=== PATIENT | male | born 1945 | race Caucasian/White ===

== ENCOUNTER 2021-03-02 19:36 | Emergency (ER) | payer MEDICARE, OTHER ==
[2021-03-02] MEDS: Sodium Chloride 0.9% 10 ML Syringe FLUSH PRN ×2 (20:10→20:57)
[2021-03-02] MEDS ORDERED: Magnesium Sulfate/Water 2 GM in Premix Bag 1 BAG IV ONE (20:16)
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
[2021-03-02] MEDS ORDERED: Amiodarone In Dextrose,Iso-Osm 200 ML IV SCH (20:30)
[2021-03-02] MEDS ORDERED: Iopamidol 755 Mg/ML 100 ML Bottle IVPUSH ONE (20:41)
[2021-03-02] MEDS ORDERED: Sodium Chloride 0.9% 10 ML SDV FLUSH ONE (20:41)
[2021-03-02] MEDS ORDERED: Sodium Chloride 0.9% 100 ML IV SCH (20:45)
--- NOTE | 2021-03-03 08:36 | CT ---
CT chest Technique: Multiple axial sections through the chest were obtained. Intravenous contrast was utilized. Study has been performed as a pulmonary angiogram protocol. Comparison: No prior chest imaging is available. Findings: Pulmonary arteries are fairly well opacified. No filling defects are seen to indicate pulmonary embolism. Thoracic aorta shows atherosclerotic calcification with no aneurysm. Mediastinum shows no adenopathy. No axillary adenopathy is seen. Soft tissue finding is seen posterior to the superior vena cava most likely representing a small vascular anomaly measuring 3.4 cm. No pericardial thickening is seen. Heart may be minimally enlarged. Increased density is seen within the gallbladder presumably representing gallstones. Parapelvic cyst is partially seen within the right kidney. Minimal hiatal hernia is noted. Lung window settings were reviewed which show mild interstitial change which is most likely due to mild fibrosis. No acute parenchymal change is definitely appreciated. Bone window settings were reviewed. Scattered degenerative change is seen within the spine. No acute osseous finding is appreciated. Impression: 1. No findings of pulmonary embolism. 2. Other findings as described above are believed to be nonacute. Diagnostic code #2 I agree with preliminary report from [facility], finalized on 03/02/21, 10:26 PM CDT, Code 1
== END 2021-03-02 22:15 ==
LOC: JD.ED 19:36
DX: I47.2 Ventricular tachycardia (principal); R55 Syncope and collapse; I44.7 Left bundle-branch block, unspecified; I10 Essential (primary) hypertension; I25.2 Old myocardial infarction; Z79.82 Long term (current) use of aspirin; Z79.899 Other long term (current) drug therapy; Z20.822 Contact with and (suspected) exposure to COVID-19
CPT/HCPCS: 36415; 71275; 80053; 83735; 84484; 85025; 85379; 93005; 96365; 96366; 96368; 99285; J0282; J3475; Q9967; U0002; 93010

== ENCOUNTER 2021-03-14 10:50 | Emergency (ER) | payer MEDICARE, OTHER ==
[2021-03-14] MEDS ORDERED: Sodium Chloride 0.9% 1,000 ML IV SCH (11:30)
--- NOTE | 2021-03-14 11:33 | EDM.PDOC ---
ED HPI GENERAL MEDICAL PROBLEM - General Chief Complaint: Cardiovascular Problem Stated Complaint: HEART RATE IS DROPPING Time Seen by Provider: 03/14/21 11:16 Source of Information: Reports: Patient, Family (Spouse) History Limitations: Reports: No Limitations - History of Present Illness INITIAL COMMENTS - FREE TEXT/NARRATIVE: 75-year-old male presents to the ED due to bradycardia. Patient had 2 stents placed in the left anterior descending coronary artery by Dr. White rn faculty at [facility] in [place] on March 02. Patient had a short run of V. tach while in hospital here ,March 01 which resolved on its own. Patient was to go to cardiac rehab first day today but as soon as they identified the bradycardia they sent him to the ED. Patient was mildly lig htheaded and dizzy with heart rates in the 30s. He reduced his amiodarone today from 400 mg daily to 200 mg daily which is the first day of treatment. He is also on metoprolol succinate 50 mg daily. He denies any chest pain or dyspnea. He overall feels well. Of note the patient has any cardiac defibrillator vest which I have not seen before with pads bilateral lower back inferior to the scapula and a pad inferior to the left breast in a belt-like fashion. Apparently this was an option versus having a defibrillator pacemaker inserted. Patient denies any productive cough or sputum production. Onset: Today (Heart rate in the 30s first noted today. Blood pressure is actually been going up a bit over the last week.) Onset Date: 03/14/21 (Bradycardia first noted today.) Duration: Hour(s):, Waxing/Waning (Heart rate is staying primarily low bradycardia 52 to 54/min.) Location: Reports: Other (Low heart rate i.e. bradycardia as low as 30/min.) Quality: Reports: Other ([Low heart rate I bradycardia in the 30s.) Improves with: Reports: Other (Proved spontaneously particularly at rest) Worsens with: Reports: Other (Is worse with exertion and standing) Associated Symptoms: Reports: Malaise, Shortness of Breath, Weakness (Mild since the DC.). Denies: Confusion, Chest Pain, Cough, cough w sputum, Diaphoresis, Fever/Chills, Headaches, Loss of Appetite, Nausea/Vomiting, Rash, Seizure, Syncope (Mild) Treatments MERCHANDISER: Reports: Other (see below) (None.) - Related Data Allergies Allergy/AdvReac Type Severity Reaction Status Date / Time No Known Allergies Allergy Verified 03/14/21 11:04 Home Meds: Home Meds Aspirin 325 mg PO DAILY 03/02/21 [History] Lisinopril/Hydrochlorothiazide [Lisinopril-HCTZ 10-12.5 MG] 2 tab PO DAILY 03/02/21 [History] Loratadine [Claritin] 10 mg PO DAILY PRN 03/02/21 [History] Metoprolol Succinate 50 mg PO BID 03/02/21 [History] Omeprazole 40 mg PO DAILY 03/02/21 [History] Simvastatin [Zocor] 40 mg PO DAILY 03/02/21 [History] flaxseed oiL [Flaxseed Oil] 2,400 mg PO BID 03/02/21 [History] Metoprolol Succinate 25 mg PO DAILY #30 tab.er.24h 03/14/21 [Rx] Past Medical History HEENT History: Reports: Hard of Hearing, Impaired Vision Cardiovascular History: Reports: Arrhythmia (History of recurrent bouts of V. tach.), CAD, Hypertension, DC, Stents (2 stents were placed March 02, 2021 in the left anterior descending artery. 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 No stent was placed at that time), Other (See Below) Other Cardiovascular History: Vtach Gastrointestinal History: Reports: Chronic Constipation, GERD (Patient problems with constipation.) Genitourinary History: Reports: BPH - Past Surgical History GI Surgical History: Reports: Appendectomy, Hernia, Inguinal Social & Family History - Living Situation & Occupation Living situation: Reports: , with Spouse Occupation: Retired ED ROS GENERAL - Review of Systems Review Of Systems: See Below Constitutional: Reports: Malaise, Fatigue, Decreased Appetite. Denies: Fever, Chills, Weight Loss HEENT: Reports: Glasses (And a decreased appetite.) Respiratory: Reports: Shortness of Breath, Cough. Denies: Wheezing, Pleuritic Chest Pain, Sputum, Hemoptysis (Productive cough intermittently.) Cardiovascular: Reports: Blood Pressure Problem (Pressures been gradually), Lightheadedness (Today with low heart rate). Denies: Chest Pain, Claudication ( going up the last week or so.), Dyspnea on Exertion, Edema, Orthopnea, Palpitations Endocrine: Reports: Fatigue GI/Abdominal: Reports: Decreased Appetite : Reports: Frequency, Other (Nocturia usually x1 or 2.) Musculoskeletal: Reports: Joint Pain (Right his knees hips low back neck at times) Skin: Reports: Bruising (Is is easily.) Neurological: Reports: No Symptoms. Denies: Confusion, Dizziness, Headache, Numbness, Syncope, Tingling, Difficulty Walking, Weakness Psychiatric: Reports: No Symptoms Hematologic/Lymphatic: Reports: No Symptoms Immunologic: Reports: No Symptoms ED EXAM, GENERAL - Physical Exam Exam: See Below Exam Limited By: No Limitations General Appearance: Alert, WD/WN, Anxious, Mild Distress, Other (Temperature is 36.9 degrees. Heart rate is 54 and sinus bradycardia respiratory to 16 with O2 sats of 90% room air. BP 144/85.) Eye Exam: Bilateral Eye: Normal Inspection (No blepharal pallor or scleral icterus.), PERRL Throat/Mouth: Normal Inspection, Normal Lips, Normal Oropharynx Head: Atraumatic, Normocephalic Neck: Normal Inspection, Supple, Non-Tender, Full Range of Motion. No: Carotid Bruit, Lymphadenopathy (L), Lymphadenopathy (R) Respiratory/Chest: No Respiratory Distress, Lungs Clear, Normal Breath Sounds, No Accessory Muscle Use Cardiovascular: No Edema, No Gallop, No Murmur, No Rub, Bradycardia (Rate was 48/min when I was in the room.). No: Normal Peripheral Pulses, Regular Rate, Rhythm Peripheral Pulses: 2+: Carotid (L), Carotid (R), Posterior Tibial (L), Posterior Tibial (R), Dorsalis Pedis (L), Dorsalis Pedis (R) GI/Abdominal: Normal Bowel Sounds, Soft, Non-Tender, No Organomegaly, No Mass, Pelvis Stable Back Exam: Normal Inspection, Full Range of Motion. No: CVA Tenderness (L), CVA Tenderness (R) Extremities: Normal Inspection, Normal Range of Motion, Non-Tender, No Pedal Edema Neurological: Alert, Oriented, CN II-XII Intact, Normal Cognition Psychiatric: Normal Affect, Anxious Skin Exam: Warm, Dry, Intact (Mildly anxious), Normal Color, No Rash #1 Interpretation EKG Date: 03/14/21 Time: 10:57 Rhythm: Other (Sinus bradycardia) Rate (Beats/Min): 53 [place]: LAD-Left [place] Deviation (-30 degrees) P-Wave: Present (With first-degree AV block) QRS: LBBB QT: Prolonged (Left bundle branch block pattern moderately prolonged) EKG Interpretation Comments: Abnormal ECG Course - Vital Signs Last Recorded V/S: Last Vital Signs Temp 36.9 C 03/14/21 10:58 Pulse 56 L 03/14/21 10:58 Resp 16 03/14/21 10:58 BP 144/85 H 03/14/21 10:58 Pulse Ox 98 03/14/21 10:58 - Orders/Labs/Meds Labs: Laboratory Tests 03/14/21 03/14/21 03/14/21 Range/Units 11:00 11:00 11:00 WBC 8.48 (4.23-9.07) K/mm3 RBC 5.07 (4.63-6.08) M/mm3 Hgb 16.1 (13.7-17.5) gm/dl Hct 49.6 (40.1-51.0) % MCV 97.8 H (79.0-92.2) fl MCH 31.8 (25.7-32.2) pg MCHC 32.5 (32.2-35.5) g/dl RDW Std Deviation 45.7 H (35.1-43.9) fL Plt Count 326 D (163-337) K/mm3 MPV 10.1 (9.4-12.3) fl Neut % (Auto) 60.1 (34.0-67.9) % Lymph % (Auto) 24.2 (21.8-53.1) % Wirt % (Auto) 12.9 H (5.3-12.2) % Eos % (Auto) 1.2 (0.8-7.0) Baso % (Auto) 0.5 (0.1-1.2) % Neut # (Auto) 5.11 (1.78-5.38) K/mm3 Lymph # (Auto) 2.05 (1.32-3.57) K/mm3 Wirt # (Auto) 1.09 H (0.30-0.82) K/mm3 Eos # (Auto) 0.10 (0.04-0.54) K/mm3 Baso # (Auto) 0.04 (0.01-0.08) K/mm3 PT 11.9 (9.7-12.0) SECONDS INR 1.11 APTT (21.7-31.4) SECONDS Sodium 141 (136-145) mEq/L Potassium 4.2 (3.5-5.1) mEq/L Chloride 104 (98-107) mEq/L Carbon Dioxide 29 (21-32) mEq/L Anion Gap 12.2 (5-15) BUN 27 H (7-18) mg/dL Creatinine 1.2 (0.7-1.3) mg/dL Est Cr Clr Drug Dosing 66.31 mL/min Estimated GFR (MDRD) 59 (>60) mL/min BUN/Creatinine Ratio 22.5 H (14-18) Glucose 71 (70-99) mg/dL Calcium 8.7 (8.5-10.1) mg/dL Magnesium 2.2 (1.8-2.4) mg/dL Total Bilirubin 1.2 H (0.2-1.0) mg/dL AST 9 L (15-37) U/L ALT 28 (16-63) U/L Alkaline Phosphatase 61 (46-116) U/L CK-MB (CK-2) 1.2 (0-3.6) ng/ml Troponin I < 0.017 (0.00-0.056) ng/mL C-Reactive Protein <0.2 (<1.0) mg/dL NT-Pro-B Natriuret Pep (0-125) pg/mL Total Protein 7.5 (6.4-8.2) g/dl Albumin 3.7 (3.4-5.0) g/dl Globulin 3.8 gm/dL Albumin/Globulin Ratio 1.0 (1-2) 03/14/21 03/14/21 Range/Units 11:00 11:00 WBC (4.23-9.07) K/mm3 RBC (4.63-6.08) M/mm3 Hgb (13.7-17.5) gm/dl Hct (40.1-51.0) % MCV (79.0-92.2) fl MCH (25.7-32.2) pg MCHC (32.2-35.5) g/dl RDW Std Deviation (35.1-43.9) fL Plt Count (163-337) K/mm3 MPV (9.4-12.3) fl Neut % (Auto) (34.0-67.9) % Lymph % (Auto) (21.8-53.1) % Wirt % (Auto) (5.3-12.2) % Eos % (Auto) (0.8-7.0) Baso % (Auto) (0.1-1.2) % Neut # (Auto) (1.78-5.38) K/mm3 Lymph # (Auto) (1.32-3.57) K/mm3 Wirt # (Auto) (0.30-0.82) K/mm3 Eos # (Auto) (0.04-0.54) K/mm3 Baso # (Auto) (0.01-0.08) K/mm3 PT (9.7-12.0) SECONDS INR APTT 26.7 (21.7-31.4) SECONDS Sodium (136-145) mEq/L Potassium (3.5-5.1) mEq/L Chloride (98-107) mEq/L Carbon Dioxide (21-32) mEq/L Anion Gap (5-15) BUN (7-18) mg/dL Creatinine (0.7-1.3) mg/dL Est Cr Clr Drug Dosing mL/min Estimated GFR (MDRD) (>60) mL/min BUN/Creatinine Ratio (14-18) Glucose (70-99) mg/dL Calcium (8.5-10.1) mg/dL Magnesium (1.8-2.4) mg/dL Total Bilirubin (0.2-1.0) mg/dL AST (15-37) U/L ALT (16-63) U/L Alkaline Phosphatase (46-116) U/L CK-MB (CK-2) (0-3.6) ng/ml Troponin I (0.00-0.056) ng/mL C-Reactive Protein (<1.0) mg/dL NT-Pro-B Natriuret Pep 212 H (0-125) pg/mL Total Protein (6.4-8.2) g/dl Albumin (3.4-5.0) g/dl Globulin gm/dL Albumin/Globulin Ratio (1-2) Meds: Medications Discontinued Medications Generic Name Dose Route Start Last Admin Trade Name Freq PRN Reason Stop Dose Admin Sodium Chloride 1,000 mls @ 100 mls/hr 03/14/21 11:30 03/14/21 12:32 Normal Saline IV 100 mls/hr ASD[facility]ED [facility] Administration - Radiology Interpretation Free Text/Narrative:: 75-year-old male presents to the ED in the accompaniment of his . Patient was supposed to attend cardiac rehab for the first time today. They appreciated his rate was in the 30s while upon arrival. He was thus sent to the ED. reports heart rate has been as low as 30 and was 38 when I first visit with the patient and since then it has been staying in the mid to lower 50s. Patient had a run of V. tach with suspected myocardial infarction on March 01. He was seen in [place] and had 2 stents placed in his left anterior descending artery March 02. Due to runs of V. tach he is currently on a defibrillator vest which I have not seen before. Apparently he was not sure he wanted to proceed with a defibrillator pacemaker insertion. He has recently reduced his amiodarone from 400 mg daily to 200 mg daily and today is the first day that this is occurred. He is on metoprolol succinate 50 mg daily as well. He denies chest pain feels mildly short of breath mildly lightheaded at times but not orthostatic. In fact blood pressure if anything is been going up a bit the last few days. Plan ECG. Portable chest x-ray. Routine labs to be done. - Re-Assessments/Exams Free Text/Narrative Re-Assessment/Exam: 03/14/21 12:30: Moderate cardiomegaly with prominent tortuous thoracic aorta. Minimal linear density within the right lung base is most likely chronic. He has a dromedary hump of the right hemidiaphragm. Lungs otherwise are clear. Bony structures showed degenerative change within the thoracic spine. No acute osseous abnormalities appreciated. 03/14/21 12:47 White count is 8.48 with 60% neutrophils on the auto differential. Hemoglobin is 16.1 with hematocrit of 49.6. MCV is 97.8. Platelet count 326,000. PT is 11.9 with an INR of 1.11. PTT is 26.7. Sodium 141 with a potassium of 4.2. Chloride 104 the bicarb of 29. Anion gap is 12.2. BUN is 27 with a creatinine of 1.2 and a GFR of 59. Glucose is low at 71. Calcium 8.7 with a magnesium of 2.2. Total bilirubin is 1.2 with an AST of 9 and an ALT of 28. Alkaline phosphatase is 61. CK-MB fraction is 1.2 troponin I is less than 0.017. C-reactive protein less than 0.2. BNP is 212. Total protein is 7.5 with an albumin fraction of 3.7 03/14/21 13:00: I did speak with on-call rn faculty Dr. Jurado and he agrees that the patient requires a reduction in dosage of medication. Since his amiodarone was reduced just today to 200 mg twice daily from 400 mg twice daily after receiving adequate loading dose that we will in turn reduce his metoprolol succinate from 50 mg to 25 mg once daily starting tomorrow morning. They have a follow-up appointment with Dr. White next week. Departure - Departure Time of Disposition: 13:31 Disposition: Home, Self-Care 01 Reason for Transfer *Q: Other Condition: Fair Clinical Impression: Symptomatic bradycardia Adverse effects of medication Qualifiers: Encounter type: initial encounter Qualified Code(s): T50.905A - Adverse effect of unspecified drugs, medicaments and biological substances, initial encounter Prescriptions: Metoprolol Succinate 25 mg PO DAILY #30 tab.er.24h Instructions: Bradycardia, Adult Referrals: Ferny Rodriguez MD [Primary Care Provider] - Forms: ED Department Discharge Additional Instructions: Evaluation in the emergency room today in regards to presentation to cardiac rehab with identification of a very low heart rate in the low 30s. While you were in the emergency room your heart rate is staying in the mid 50s which is kind of where we would like it usually between 55 and 65 bpm. Lab work done through the emergency room was all within normal limits today showing a normal magnesium and potassium level. Chest x-ray will also was essentially normal. Decision made after speaking with cardiology in [facility] in [place] is to reduce your metoprolol succinate from 50 mg daily to 25 mg daily and let your heart rate come back up. Of note this will take at least 3 to 4 days for the higher dose to wear off. Therefore take life easy over the next 3 to 4 days with no prolonged standing which would place you at risk of a fall. Maintain adequate hydration as well. Start the metoprolol 25 mg succinate tablet tomorrow morning. Continue with your amiodarone reduction to 200 mg tablet twice daily as planned.
--- NOTE | 2021-03-14 12:01 | CR ---
Chest: Frontal view of the chest was obtained. Comparison: Prior chest CT of 03/02/21. Heart size and mediastinum are within normal limits. Minimal linear density within the right lung base is seen most likely chronic. Lungs otherwise are clear. Bony structures shows degenerative change within the spine. No acute osseous abnormality is appreciated. Impression: 1. Incidental findings. 2. Nothing acute is appreciated on frontal chest x-ray. Diagnostic code #2
== END 2021-03-14 14:10 | disposition home or self-care (01) ==
LOC: JD.ED 10:50
DX: R00.1 Bradycardia, unspecified (principal); T46.2X5A Adverse effect of other antidysrhythmic drugs, initial encounter; I25.10 Atherosclerotic heart disease of native coronary artery without angina pectoris; I10 Essential (primary) hypertension; I25.2 Old myocardial infarction; K21.9 Gastro-esophageal reflux disease without esophagitis; Z95.5 Presence of coronary angioplasty implant and graft; Z79.82 Long term (current) use of aspirin; Z79.899 Other long term (current) drug therapy; R06.02 Shortness of breath
CPT/HCPCS: 36415; 71045; 80053; 82553; 83735; 83880; 84484; 85025; 85610; 85730; 86140; 93005; 99284; J7030; 93010

== ENCOUNTER 2022-06-04 07:04 | Day surgery (SDC) | payer MEDICARE, OTHER ==
[~2022-06-04 07:04] MED LIST: Lactated Ringers 1,000 ML IV SCH; Lidocaine 1% 4 ML ONE; Lidocaine 1%/Sod Bicarbonate in NS 8.4% 1 ML Syringe IDERM PRN; Propofol 200 MG/20 ML SDV ONE; Sodium Chloride 0.9% 10 ML Syringe FLUSH PRN; Sodium Chloride 0.9% 10 ML Syringe FLUSH SCH
[2022-06-04] MEDS ORDERED: Ondansetron 4 MG/2 ML SDV IVPUSH PRN (07:27)
[2022-06-04] MEDS ORDERED: Etomidate 2 MG/ML 20 ML SDV IVPUSH ONE (07:29)
[2022-06-04] MEDS ORDERED: Lidocaine 4% Top Soln 50 ML Bottle ONE (07:31)
== END 2022-06-04 09:22 | disposition home or self-care (01) ==
LOC: JD.SDS 07:04
PROVIDERS: ATTEND Surgery
DX: R13.10 Dysphagia, unspecified (principal); K29.50 Unspecified chronic gastritis without bleeding; K44.9 Diaphragmatic hernia without obstruction or gangrene; K29.70 Gastritis, unspecified, without bleeding; I42.0 Dilated cardiomyopathy; K21.9 Gastro-esophageal reflux disease without esophagitis; I11.0 Hypertensive heart disease with heart failure; I50.22 Chronic systolic (congestive) heart failure; I44.7 Left bundle-branch block, unspecified; I25.10 Atherosclerotic heart disease of native coronary artery without angina pectoris; E78.00 Pure hypercholesterolemia, unspecified; N40.0 Benign prostatic hyperplasia without lower urinary tract symptoms; I25.2 Old myocardial infarction; Z90.49 Acquired absence of other specified parts of digestive tract; Z98.890 Other specified postprocedural states; Z79.899 Other long term (current) drug therapy; Z79.82 Long term (current) use of aspirin
CPT/HCPCS: 00731; 88305; 88342; A9270-GY; J2704; J3490; J7120

== ENCOUNTER 2024-09-17 14:51 | Emergency (ER) | payer MEDICARE, OTHER ==
[2024-09-17] MEDS: Lactated Ringers 500 ML IV ONE (15:16)
[2024-09-17] MEDS ORDERED: Sodium Chloride 0.9% 10 ML Syringe FLUSH PRN (15:18)
[2024-09-17 15:24] LABS: BASOPHILS ABSOLUTE AUTO 0.1 K/mm3 (0.0-0.2); BASOPHILS PERCENT AUTO 0.6 % (0.0-1.0); EOSINOPHILS ABSOLUTE AUTO 0.2 K/mm3 (0.0-0.4); EOSINOPHILS PERCENT AUTO 2.1 % (0.0-6.0); HEMATOCRIT 44.7 % (42.0-52.0); HEMOGLOBIN 14.8 gm/dl (14.0-18.0); IMMATURE GRAN ABSOLUTE AUTO 0.13 K/mm3 (0.00-0.05); IMMATURE GRAN PERCENT AUTO 1.5 % (0.0-0.4); LYMPHOCYTES ABSOLUTE AUTO 2.4 K/mm3 (1.0-4.8); LYMPHOCYTES PERCENT AUTO 26.6 % (24.0-44.0); MEAN CORPUSCULAR HEMOGLOBIN 32.2 pg (28.0-32.0); MEAN CORPUSCULAR HGB CONC 33.1 g/dl (32.0-36.0); MEAN CORPUSCULAR VOLUME 97.4 fl (83.0-99.0); MEAN PLATELET VOLUME 9.6 fl (9.4-12.4); MONOCYTES ABSOLUTE AUTO 0.9 K/mm3 (0.0-0.8); MONOCYTES PERCENT AUTO 10.5 % (0.0-8.0); NEUTROPHILS ABSOLUTE AUTO 5.3 K/mm3 (1.8-7.7); NEUTROPHILS PERCENT AUTO 58.7 % (41.0-71.0); PLATELET COUNT,PLT 212 K/mm3 (150-400); RED BLOOD CELL COUNT 4.59 M/mm3 (4.52-5.90); WHITE BLOOD CELL COUNT,WBC 8.94 K/mm3 (3.9-11.3)
[2024-09-17 15:44] LABS: ANION GAP 12.3 (5-15); BUN/CREATININE RATIO 20.8 (14-18); CREATININE 1.2 mg/dL (0.7-1.3); POTASSIUM,K 4.3 mEq/L (3.5-5.1)
[2024-09-17 15:45] LABS: A/G RATIO 0.9 (1-2); ALBUMIN 3.2 g/dl (3.4-5.0); BILIRUBIN TOTAL 0.5 mg/dL (0.2-1.0); CALCIUM 8.9 mg/dL (8.5-10.1); EST CRCL DRUG DOSING (CG) 58.99 mL/min; PROTEIN TOTAL,TP 6.8 g/dl (6.4-8.2)
[2024-09-17] MEDS ORDERED: Iopamidol 755 Mg/ML 100 ML Bottle IVPUSH ONE (15:58)
[2024-09-17] MEDS ORDERED: Sodium Chloride 0.9% 10 ML Syringe FLUSH ONE (15:58)
[2024-09-17] MEDS ORDERED: Sodium Chloride 0.9% 100 ML IV SCH (16:00)
[2024-09-17] MEDS: fentaNYL 100 MCG/2 ML SDV ONE (18:30)
[2024-09-17] MEDS: SODIUM CHLORIDE 0.9% IV ONE (18:30)
[2024-09-17] MEDS: DESMOPRESSIN IV ONE (18:30)
[2024-09-17] MEDS: fentaNYL 100 MCG/2 ML SDV IVPUSH ONE (18:31)
[2024-09-17] MEDS: Lidocaine 1% with EPINEPHrine 1:100,000 20 ML MDV INJECT ONE (18:32)
[2024-09-17] MEDS: Lidocaine 1% with EPINEPHrine 1:100,000 20 ML MDV ONE (18:32)
== END 2024-09-17 18:15 ==
LOC: JD.ED 14:51
DX: S06.6X9A Traumatic subarachnoid hemorrhage with loss of consciousness of unspecified duration, initial encounter (principal); S42.112A Displaced fracture of body of scapula, left shoulder, initial encounter for closed fracture; G96.08 Other cranial cerebrospinal fluid leak; I25.10 Atherosclerotic heart disease of native coronary artery without angina pectoris; I25.2 Old myocardial infarction; I10 Essential (primary) hypertension; Z95.5 Presence of coronary angioplasty implant and graft; Z79.01 Long term (current) use of anticoagulants; Z79.82 Long term (current) use of aspirin; Z79.899 Other long term (current) drug therapy; Z79.02 Long term (current) use of antithrombotics/antiplatelets; W11.XXXA Fall on and from ladder, initial encounter; Y93.89 Activity, other specified
CPT/HCPCS: 12002; 36415; 70450; 70450-26; 71260; 71260-26; 73020-26-LT; 73020-LT; 74177; 74177-26; 80053; 80307; 83605; 83690; 84484; 85025; 96361; 96374; 99285; 99285-25; J2004; J3010; J7120

== ENCOUNTER 2024-12-19 12:18 | Emergency (ER) | payer MEDICARE, OTHER ==
[2024-12-19] MEDS ORDERED: Naloxone 0.4 MG/ML SDV IVPUSH PRN (13:02)
[2024-12-19] MEDS: Ondansetron 4 MG/2 ML SDV IVPUSH ONE (13:29)
[2024-12-19] MEDS: Sodium Chloride 0.9% 500 ML IV SCH (13:29)
[2024-12-19] MEDS: fentaNYL 100 MCG/2 ML SDV IVPUSH ONE (13:30)
[2024-12-19 13:40] LABS: BASOPHILS PERCENT AUTO 0.2 % (0.0-1.0); EOSINOPHILS PERCENT AUTO 0.1 % (0.0-6.0); HEMATOCRIT 46.6 % (42.0-52.0); HEMOGLOBIN 15.2 gm/dl (14.0-18.0); IMMATURE GRAN ABSOLUTE AUTO 0.03 K/mm3 (0.00-0.05); IMMATURE GRAN PERCENT AUTO 0.3 % (0.0-0.4); LYMPHOCYTES ABSOLUTE AUTO 0.5 K/mm3 (1.0-4.8); LYMPHOCYTES PERCENT AUTO 4.7 % (24.0-44.0); MEAN CORPUSCULAR HEMOGLOBIN 31.9 pg (28.0-32.0); MEAN CORPUSCULAR HGB CONC 32.6 g/dl (32.0-36.0); MEAN CORPUSCULAR VOLUME 97.7 fl (83.0-99.0); MEAN PLATELET VOLUME 9.2 fl (9.4-12.4); MONOCYTES ABSOLUTE AUTO 0.1 K/mm3 (0.0-0.8); MONOCYTES PERCENT AUTO 0.5 % (0.0-8.0); NEUTROPHILS ABSOLUTE AUTO 10.6 K/mm3 (1.8-7.7); NEUTROPHILS PERCENT AUTO 94.2 % (41.0-71.0); PLATELET COUNT,PLT 228 K/mm3 (150-400); RED BLOOD CELL COUNT 4.77 M/mm3 (4.52-5.90); WHITE BLOOD CELL COUNT,WBC 11.25 K/mm3 (3.9-11.3)
[2024-12-19 13:56] LABS: A/G RATIO 0.8 (1-2); ALBUMIN 3.5 g/dl (3.4-5.0); ANION GAP 17.1 (5-15); BILIRUBIN TOTAL 0.8 mg/dL (0.2-1.0); BUN/CREATININE RATIO 15.3 (14-18); CALCIUM 9.4 mg/dL (8.5-10.1); CREATININE 1.5 mg/dL (0.7-1.3); EST CRCL DRUG DOSING (CG) 49.83 mL/min; POTASSIUM,K 4.1 mEq/L (3.5-5.1); PROTEIN TOTAL,TP 7.8 g/dl (6.4-8.2)
[2024-12-19 14:57] LABS: APPEARANCE,URINE CLOUDY (Clear); BILIRUBIN,URINE NEGATIVE (Negative); COLOR,URINE YELLOW (Yellow); GLUCOSE,URINE NEGATIVE (Negative); KETONES,URINE TRACE (Negative); LEUKOCYTE ESTERASE,URINE 3+ (Negative); NITRITE,URINE POSITIVE (Negative); OCCULT BLOOD,URINE 3+ (Negative); PH,URINE 7.5 (5.0-8.0); PROTEIN,URINE 2+ (Negative)
[2024-12-19 15:30] LABS: WBC,URINE 75-100 /hpf (0-5)
[2024-12-19 15:31] LABS: AMORPHOUS SEDIMENT,URINE FEW /hpf (NOT SEEN); BACTERIA,URINE FEW /hpf (FEW); MUCUS,URINE FEW /hpf (FEW); SQUAMOUS EPITHELIAL CELLS,UR 0-5 /hpf (0-5)
[2024-12-19] MEDS: cefTRIAXone 2 GM Vial IVPUSH ONE (16:09)
== END 2024-12-19 17:30 ==
LOC: JD.ED 12:18
DX: N13.6 Pyonephrosis (principal); N28.9 Disorder of kidney and ureter, unspecified; I25.10 Atherosclerotic heart disease of native coronary artery without angina pectoris; I10 Essential (primary) hypertension; I25.2 Old myocardial infarction; Z95.5 Presence of coronary angioplasty implant and graft; Z79.82 Long term (current) use of aspirin; Z79.899 Other long term (current) drug therapy; Z79.890 Hormone replacement therapy
CPT/HCPCS: 36415; 74176; 80053; 81001; 82550; 85025; 96361; 96374; 96375; 99285; J0696; J2405; J3010; J7030

== ENCOUNTER 2025-04-13 09:15 | Day surgery (SDC) | payer MEDICARE, OTHER ==
[~2025-04-13 09:15] MED LIST changes: -Lactated Ringers 1,000 ML IV SCH; -Lidocaine 1% 4 ML ONE; -Lidocaine 1%/Sod Bicarbonate in NS 8.4% 1 ML Syringe IDERM PRN; -Propofol 200 MG/20 ML SDV ONE
[2025-04-13] MEDS: Lactated Ringers 1,000 ML IV SCH (09:45)
[2025-04-13] MEDS ORDERED: propofoL 500 MG/50 ML 50 ML ONE (10:25)
[2025-04-13] MEDS ORDERED: fentaNYL 250 MCG/5 ML SDV ONE (10:29)
[2025-04-13] MEDS ORDERED: Ondansetron 4 MG/2 ML SDV ONE (10:30)
[2025-04-13] MEDS ORDERED: dexmedeTOMIDine HCl 200 MCG/2 ML SDV ONE (10:31)
[2025-04-13] MEDS: EPINEPHrine 1 MG/ML SDV ONE (11:39)
[2025-04-13] MEDS ORDERED: Propofol 200 MG/20 ML SDV ONE (11:55)
[2025-04-13] MEDS ORDERED: fentaNYL 100 MCG/2 ML SDV IVPUSH PRN (12:46)
[2025-04-13] MEDS ORDERED: Ondansetron 4 MG/2 ML SDV IVPUSH PRN (12:46)
== END 2025-04-13 14:45 | disposition home or self-care (01) ==
LOC: JD.SDS 09:15
PROVIDERS: ATTEND Surgery
DX: K80.10 Calculus of gallbladder with chronic cholecystitis without obstruction (principal); I25.10 Atherosclerotic heart disease of native coronary artery without angina pectoris; Z79.82 Long term (current) use of aspirin; Z79.899 Other long term (current) drug therapy; Z79.890 Hormone replacement therapy
CPT/HCPCS: 47562; 88304; J0169; J0665; J0690; J2405; J2704; J3010; J7120; 00790; 99100; J1171; J3490